=== PATIENT | female | born 1995 | race Caucasian/White ===

== ENCOUNTER 2018-08-12 07:48 | Inpatient (IN) ==
[2018-08-12] MEDS ORDERED: ONDANSETRON 4 MG/2 ML VIAL IV PRN ×2 (08:39→13:53)
[2018-08-12] MEDS ORDERED: BUTORPHANOL 1 MG/ML VIAL IV PRN (08:39)
[2018-08-12] MEDS ORDERED: BUTORPHANOL 2 MG/ML VIAL IV PRN (08:39)
[2018-08-12] MEDS ORDERED: ePHEDrine 50 MG/ML AMP IV PRN (08:44)
[2018-08-12] MEDS ORDERED: FAMOTIDINE 20 MG/2 ML VIAL IV ONE (08:44)
[2018-08-12] MEDS ORDERED: PROMETHAZINE 25 MG/1 ML VIAL IM ONE (08:44)
[2018-08-12] MEDS ORDERED: CITRIC ACID/SODIUM CITRATE 30 ML UDCUP PO ONE (08:44)
[2018-08-12] MEDS ORDERED: LACTATED RINGERS 1,000 ML IV ONE (08:44)
[2018-08-12] MEDS ORDERED: NALOXONE 0.4 MG/ML VIAL IV PRN (08:44)
[2018-08-12] MEDS ORDERED: hydrOXYzine HCL 25 MG/1 ML VIAL IM PRN (08:44)
[2018-08-12] MEDS ORDERED: ONDANSETRON 4 MG/2 ML VIAL IV ONE (08:44)
[2018-08-12] MEDS ORDERED: diphenhydrAMINE 50 MG/1 ML VIAL IV PRN ×2 (08:44)
[2018-08-12 08:59] LABS: Basophils % 0.1 % (0.0-0.8); Eosinophils # 0.1 10*3/uL (0.0-0.87); Eosinophils % 0.8 % (0.00-10.9); Hematocrit 29.5 VOL% (35.7-47.0); Hemoglobin 8.9 GM/DL (12.0-16.0); Immature Granulocytes % 1.4 %; Immature Granulocytes Absolute 0.12 #; Lymphocytes # 1.6 10*3/uL (1.4-4.0); Lymphocytes % 17.8 % (21.3-54.2); Mean Corpuscular HGB Conc 30.2 GM/DL (32-36); Mean Corpuscular Hemoglobin 26 PG (27-34); Mean Corpuscular Volume 87.5 FL (87-102); Mean Platelet Volume 9.5 FL (9.6-12.0); Monocytes # 0.9 10*3/uL (0.11-0.8); Monocytes % 10.2 % (1.7-12.7); Neutrophils # 6.1 10*3/uL (1.4-7.4); Neutrophils % 69.7 % (38.7-73.9); Platelet Count 190 T/CUMM (130-400); Red Blood Count 3.37 MC/CUMM (3.8-5.5); White Blood Count 8.8 T/CUMM (4-12)
[2018-08-12] MEDS ORDERED: OXYTOCIN/LR 20 UNIT/1,000 ML BAG IV SCH (09:00)
[2018-08-12] MEDS ORDERED: fentaNYL 2 MCG/ROPIV 0.2% EPID 100 ML EPIDURAL SCH (09:00)
[2018-08-12] MEDS: LACTATED RINGERS 1,000 ML IV SCH ×3 (09:15→20:08)
[2018-08-12 09:22] LABS: Albumin 2.7 G/DL (3.4-5.0); Bilirubin,Total 0.9 MG/DL (0.2-1.0); Calcium 8.4 MG/DL (8.5-10.1); Osmolality,Calculated 269.8 MOS/KG (273-304); Potassium 4.1 MMOL/L (3.5-5.1); Total Protein 7.1 G/DL (6.4-8.3)
[2018-08-12 12:19] LABS: Apearance,Urine CLEAR (Clear); Bacteria,Urine Many /HPF (Few); Bilirubin,Urine Negative (Negative); Blood, Urine Negative (Negative); Glucose,Urine (UA) Negative (Negative); Ketones,Urine 5 mg/dL (Negative); Mucus,Urine Occasional /LPF (Occasional); Nitrite,Urine Negative (Negative); Protein,Urine Negative; Urine Color Yellow (Yellow); Urine Specific Gravity 1.017 (1.001-1.035); Urine Urobilinogen < 2.0 EU/DL (0.2-1.0); WBC,Urine 1 /HPF (0-6)
[2018-08-12] MEDS ORDERED: miSOPROStol 200 MCG TABLET ONE (13:14)
[2018-08-12] MEDS ORDERED: LIDOCAINE 1% 50 ML VIAL ONE (13:14)
[2018-08-12] MEDS ORDERED: TRANEXAMIC ACID 1,000 MG/10 ML VIAL ONE (13:14)
[2018-08-12] MEDS ORDERED: METHYLERGONOVINE 0.2 MG/1 ML AMP ONE (13:15)
[2018-08-12] MEDS ORDERED: CARBOPROST TROMETHAMINE 250 MCG/ML AMP IM ONE (13:15)
[2018-08-12] MEDS ORDERED: miSOPROStol 200 MCG TABLET VAG ONE (13:26)
[2018-08-12] MEDS ORDERED: METHYLERGONOVINE 0.2 MG/1 ML AMP IM ONE (13:26)
[2018-08-12] MEDS ORDERED: RHO(D) IMMUNE GLOBULIN 300 MCG SYRINGE IM ONE (13:53)
[2018-08-12] MEDS ORDERED: OXYTOCIN/LR 20 UNIT/1,000 ML BAG IV ONE (13:53)
[2018-08-12] MEDS ORDERED: BISACODYL 10 MG SUPP RECTAL PRN (13:53)
[2018-08-12] MEDS ORDERED: DIPH/TET/ACEL PERT BOOSTER VACCINE 0.5 ML VIAL IM ONE (13:53)
[2018-08-12] MEDS ORDERED: BENZOCAINE 20%/MENTHOL 0.5% SPRAY 56 GM CAN TOP PRN (13:53)
[2018-08-12] MEDS ORDERED: oxyCODONE/ACETAMINOPHEN 5-325 MG TABLET PO PRN (13:53)
[2018-08-12] MEDS ORDERED: HYDROCORTISONE 2.5% RECTAL CREAM 30 GM TUBE TOP PRN (13:53)
[2018-08-12] MEDS ORDERED: WITCH HAZEL PADS 100/JAR TOP PRN (13:53)
[2018-08-12] MEDS ORDERED: LANOLIN 50% CREAM 0.3 OZ TUBE TOP PRN (13:53)
[2018-08-12] MEDS ORDERED: MEASLES/MUMPS/RUBELLA VACCINE 0.5 ML VIAL SUBCUT ONE (13:53)
[2018-08-12] MEDS ORDERED: IBUPROFEN 800 MG TABLET PO PRN (13:53)
[2018-08-12] MEDS ORDERED: ACETAMINOPHEN 325 MG TABLET PO PRN (13:53)
[2018-08-12] MEDS: ESCITALOPRAM 10 MG TABLET PO SCH (18:01)
[2018-08-13 05:10] LABS: Basophils % 0.1 % (0.0-0.8); Eosinophils % 0.3 % (0.00-10.9); Hematocrit 24.9 VOL% (35.7-47.0); Hemoglobin 7.7 GM/DL (12.0-16.0); Immature Granulocytes Absolute 0.14 #; Lymphocytes # 1.8 10*3/uL (1.4-4.0); Lymphocytes % 12.8 % (21.3-54.2); Mean Corpuscular HGB Conc 30.9 GM/DL (32-36); Mean Corpuscular Hemoglobin 27 PG (27-34); Mean Corpuscular Volume 86.2 FL (87-102); Mean Platelet Volume 10.4 FL (9.6-12.0); Monocytes # 1.3 10*3/uL (0.11-0.8); Monocytes % 9.2 % (1.7-12.7); Neutrophils # 10.8 10*3/uL (1.4-7.4); Neutrophils % 76.6 % (38.7-73.9); Platelet Count 209 T/CUMM (130-400); Red Blood Count 2.89 MC/CUMM (3.8-5.5)
[2018-08-13] MEDS: oxyCODONE/ACETAMINOPHEN 5-325 MG TABLET PO PRN ×2 (06:30→12:18)
[2018-08-13] MEDS: ESCITALOPRAM 10 MG TABLET PO SCH (09:40)
[2018-08-13] MEDS: DOCUSATE SODIUM 100 MG CAPSULE PO SCH ×2 (09:40→20:22)
[2018-08-13] MEDS: FERROUS SULFATE 325 MG TABLET PO SCH (20:22)
[2018-08-14] MEDS: oxyCODONE/ACETAMINOPHEN 5-325 MG TABLET PO PRN ×2 (00:23→06:32)
[2018-08-14] MEDS: FERROUS SULFATE 325 MG TABLET PO SCH (09:50)
[2018-08-14] MEDS: ESCITALOPRAM 10 MG TABLET PO SCH (09:50)
[2018-08-14] MEDS: DOCUSATE SODIUM 100 MG CAPSULE PO SCH (09:50)
[2018-08-14 10:48] VITALS: BP 90/58
== END 2018-08-14 12:40 | disposition home or self-care (01) | DRG 560 ==
LOC: N.LDOUT 07:48 → N.LD 07:49 → N.OB 08-13 13:29
PROVIDERS: ADMIT Obstetrics & Gynecology; ATTEND Obstetrics & Gynecology